=== PATIENT | female | born 1995 | race Caucasian/White ===

== ENCOUNTER 2021-04-16 08:43 | Emergency (ER) | payer OTHER ==
[2021-04-16] MEDS ORDERED: cefTRIAXone\\ROCEPHIN 1 GM VIAL ONE (09:45)
[2021-04-16] MEDS ORDERED: Lidocaine 1% PF 5 ML VIAL ONE (09:45)
== END 2021-04-16 10:02 | disposition home or self-care (01) ==
LOC: ERS 08:43
DX: K04.7 Periapical abscess without sinus (principal); K02.9 Dental caries, unspecified
CPT/HCPCS: 96372; 99283; J0696